=== PATIENT | female | born 1990 ===

== ENCOUNTER 2020-11-08 01:10 | Emergency (ER) | payer OTHER ==
[~2020-11-08] VITALS: Ht 170.2 cm; Wt 57.6 kg
--- NOTE | 2020-11-08 01:50 | NUR ---
MD Seay at bedside to do MSE.
[2020-11-08] MEDS ORDERED: BACI500P4 TP (02:02)
[2020-11-08] MEDS ORDERED: NAPR-1164 PO (02:02)
[2020-11-08] MEDS ORDERED: TDAP DIPH,PERTUSS,TET VAC/PF 0.5 ML DISP.SYRIN IM ONE ×2 (02:15→02:30)
[2020-11-08] MEDS ORDERED: BACITRACIN ZINC OINT 15 GM TUBE TOP ONE (02:15)
[2020-11-08] MEDS: MORPHINE SULFATE 4 MG/1 ML DISP.SYRIN IM ONE ×2 (02:20→02:30)
[2020-11-08] MEDS ORDERED: MORPHINE SULFATE 4 MG/1 ML DISP.SYRIN ONE (02:29)
[2020-11-08] MEDS ORDERED: BACITRACIN ZINC OINT 15 GM TUBE ONE (02:31)
--- NOTE | 2020-11-08 02:40 | NUR ---
Patient is resting comfortably in bed, no acute distress noted.
[2020-11-08 02:49] VITALS: BP 110/68
--- NOTE | 2020-11-08 02:49 | NUR ---
Patient discharged to home in stable condition. Written and verbal after care instructions given. Patient verbalizes understanding of instructions. Stressed follow up or return to ER for worsening s/s. Patient ambulates with steady gait, V/S stable, paper Rx given, and left ER room with all personal belongings.
--- NOTE | 2020-11-08 02:50 | NUR ---
Patient was getting ready for discharge, ambulated with steady gait, stated great improvement in her pain. Denied dizziness. Patient stated once she was checking out at the registration ER desk. She felt dizzy and passed out and hit her head on the floor.
--- NOTE | 2020-11-08 02:55 | NUR ---
Patient was asked if she had similar fainting episodes in the past. Patient states she has fainted before in the past.
== END 2020-11-08 02:50 | disposition home or self-care (01) ==
LOC: ER 01:13
DX: T23.231A Burn of second degree of multiple right fingers (nail), not including thumb, initial encounter (principal); T31.0 Burns involving less than 10% of body surface; X10.2XXA Contact with fats and cooking oils, initial encounter; Y92.89 Other specified places as the place of occurrence of the external cause; Z88.2 Allergy status to sulfonamides
CPT/HCPCS: 16020; 90471; 90715; 96372; 99283; J2270; A4663

== ENCOUNTER 2020-11-08 02:59 | Emergency (ER) | payer OTHER ==
[~2020-11-08] VITALS: Ht 165.1 cm; Wt 57.6 kg
[~2020-11-08 02:59] MED LIST: BACI500P4 TP; NAPR-1164 PO
--- NOTE | 2020-11-08 03:15 | NUR ---
Patient states that she was at the registration desk getting ready to sign her discharge paperwork, and explained that she started thinking about needles which made her felt nervous, uneasy, and fainted as a result.
--- NOTE | 2020-11-08 03:29 | NUR ---
Patient returned from CT scan.
--- NOTE | 2020-11-08 03:41 | NUR ---
Patient is bradycardic on monitor with heart rate ranging around 38-43. MD Seay notified and in room with patient.
--- NOTE | 2020-11-08 03:50 | NUR ---
Patient is resting comfortably in bed with eyes closed, no acute distress noted.
--- NOTE | 2020-11-08 04:04 | NUR ---
Patient discharged to home in stable condition. Written and verbal after care instructions given. Patient verbalizes understanding of instructions. Stressed follow up or return to ER for worsening s/s. Patient was placed on a wheelchair and wheeled to her partner's car for precaution, V/S stable, received CT results, and left with all personal belongings.
[2020-11-08 04:05] VITALS: BP 130/72
== END 2020-11-08 04:05 | disposition home or self-care (01) ==
LOC: ER 03:01
DX: R55 Syncope and collapse (principal); S09.90XA Unspecified injury of head, initial encounter; W18.39XA Other fall on same level, initial encounter; Y92.481 Parking lot as the place of occurrence of the external cause; Z88.2 Allergy status to sulfonamides
CPT/HCPCS: 70450; 93005; A4663